=== PATIENT | female | born 1955 | race Caucasian/White ===

== ENCOUNTER → 2020-09-17 11:17 | Outpatient (CLI) | payer MEDICARE, SELFPAY ==
--- NOTE | 2020-09-17 11:22 | BI_ITS ---
MAMMOGRAPHY - BILATERAL SCREENING REASON FOR EXAM: Female, 65 years old. Routine annual screening examination. PERTINENT HISTORY: Non-contributory. TECHNIQUE: Digital bilateral breast higinio (3D mammographic acquisition) in the CC and MLO projections. 2-D mediolateral oblique (MLO) and craniocaudad (CC) views of both breasts were obtained. CAD: Full Field Digital Mammography with Computer Added Detection was performed. COMPARISON: Comparison is made with prior outside examination dated 04/28/2019. FINDINGS: Breast Composition: There are scattered areas of fibroglandular density. Scattered benign-appearing nodules are seen in both breasts more prominent on the right side. The largest nodule measures 4.4 mm and is in the upper central portion of the right breast. Correlation with ultrasound of the right breast is recommended. Stable small benign appearing bilateral axillary lymph nodes. No other significant abnormalities are identified. BI/SCRN MAMM (CAD)W/HIGINIO BILAT IMPRESSION: Small bilateral well-defined nodular densities as described. Correlation with ultrasound is recommended of the right breast. ASSESSMENT CATEGORY: BIRADS Category 0: Incomplete. Need additional imaging evaluation. A letter regarding these results will be sent to the patient by the facility within 30 days. Approximately 10% of breast cancers are not detected by mammography. A normal mammogram should not delay biopsy of a clinically suspicious abnormality. [id number] Electronically Signed: Meño Hester MD at 14:17 EDT , Service support ,
== END ==
PROVIDERS: PCP Family Medicine; Referring Provider Obstetrics & Gynecology; Visit Provider Obstetrics & Gynecology
DX: Z12.31 Encounter for screening mammogram for malignant neoplasm of breast (principal)
CPT/HCPCS: 77063; 77067

== ENCOUNTER → 2020-09-19 10:53 | Outpatient (CLI) | payer MEDICARE, SELFPAY ==
--- NOTE | 2020-09-19 10:54 | US_ITS ---
STUDY: ULTRASOUND BREAST - RIGHT REASON FOR EXAM: Female, 65 years old. Abnormal screening mammogram. TECHNIQUE: Axial and longitudinal images of the RIGHT breast were performed with a high resolution ultrasound transducer. # OF IMAGES: 45 COMPARISON: Comparison is made with prior mammogram dated 09/17/2020. FINDINGS: RIGHT Breast: There is a 4 mm x 4 mm x 3 mm cyst at the 12 o''clock position of the breast at 1 cm from the nipple. US/Breast Complete Unilateral IMPRESSION: 4 mm x 4 mm x 3 mm cyst at the 12 o''clock position of the breast at 1 cm from the nipple. ASSESSMENT CATEGORY: BIRADS Category 2: Benign. A letter regarding these results will be sent to the patient by the facility within 30 days. Electronically Signed: Meño Hester MD at 15:41 EDT , Service support ,
== END ==
PROVIDERS: PCP Family Medicine; Referring Provider Obstetrics & Gynecology; Visit Provider Obstetrics & Gynecology
DX: R92.8 Other abnormal and inconclusive findings on diagnostic imaging of breast (principal)
CPT/HCPCS: 76641

== ENCOUNTER → 2021-10-16 | Outpatient (CLI) | payer MEDICARE, SELFPAY ==
--- NOTE | 2021-10-16 13:50 | BI_ITS ---
MAMMOGRAPHY - BILATERAL SCREENING REASON FOR EXAM: Female, 66 years old. Routine annual screening examination. PERTINENT HISTORY: Non-contributory. TECHNIQUE: Digital bilateral breast higinio (3D mammographic acquisition) in the CC and MLO projections. 2-D mediolateral oblique (MLO) and craniocaudad (CC) views of both breasts were obtained. CAD: Full Field Digital Mammography with Computer Added Detection was performed. COMPARISON: Comparison is made with prior study dated 09/17/2020. FINDINGS: Breast Composition: There are scattered areas of fibroglandular density. There are no dominant masses or suspicious calcifications. No other significant abnormalities are identified. There has been no significant change since the prior study. BI/SCRN MAMM (CAD)W/HIGINIO BILAT IMPRESSION: Stable bilateral screening mammogram. Yearly follow-up mammogram recommended. (A) ASSESSMENT CATEGORY: BIRADS Category 1: Negative. A letter regarding these results will be sent to the patient by the facility within 30 days. Approximately 10% of breast cancers are not detected by mammography. A normal mammogram should not delay biopsy of a clinically suspicious abnormality. [id number] Electronically Signed: Meño Hester MD at 15:08 EDT ,
== END | disposition home or self-care (01) ==
LOC: OPBI 13:47
PROVIDERS: PCP Family Medicine; Visit Provider Family Medicine
DX: Z12.31 Encounter for screening mammogram for malignant neoplasm of breast (principal)
CPT/HCPCS: 77063; 77067

== ENCOUNTER → 2021-10-31 | Outpatient (CLI) | payer MEDICARE, SELFPAY ==
--- NOTE | 2021-10-31 08:00 | RAD_ITS ---
STUDY: AIR CONTRAST UPPER GI SERIES REASON FOR EXAM: Female, 66 years old. R13.10 - Dysphagia, unspecified FLUOROSCOPY TIME (if supplied): 33 seconds TECHNIQUE: SINGLE CONTRAST AND AIR CONTRAST FLUOROSCOPIC IMAGES. COMPARISON: None. FINDINGS: The cervical esophagus demonstrates normal motility without aspiration. There is no stricture or extrinsic mass effect. There is a small hiatal hernia with Schatzki''s ring in the distal esophagus. There is mild reflux. There is mild mucosal irregularity in the distal esophagus suggestive of chronic reflux. No mass or obstruction. The stomach distends well without mucosal fold thickening or mucosal ulceration. There is no intraluminal mass. The duodenal bulb is freely distensible without deformity or ulceration. The duodenal sweep is normal in position and caliber. RAD/Upper GI w/BA Swallow IMPRESSION: Small hiatal hernia with Schatzki''s ring in the distal esophagus. Mild reflux and mucosal changes suggestive of GERD. Electronically Signed: Omer Rojas, at 10:39 EDT ,
== END | disposition home or self-care (01) ==
LOC: RAD 07:48
PROVIDERS: PCP Family Medicine; Referring Provider Surgery; Visit Provider Surgery
DX: R13.10 Dysphagia, unspecified (principal)
CPT/HCPCS: 74246

== ENCOUNTER → 2021-11-26 | Outpatient (CLI) | payer MEDICARE, SELFPAY | END | disposition home or self-care (01) | LOC: LABSPEC 10:15 | PROVIDERS: PCP Family Medicine; Visit Provider Nurse Practitioner Women's Health | DX: R10.2 Pelvic and perineal pain (principal); R30.9 Painful micturition, unspecified | CPT/HCPCS: 87070; 87086; 87088; 87205 ==

== ENCOUNTER → 2021-11-27 | Outpatient (CLI) | payer MEDICARE, SELFPAY ==
--- NOTE | 2021-11-27 16:06 | US_ITS ---
STUDY: ULTRASOUND OF THE FEMALE PELVIS - COMPLETE REASON FOR EXAM: Female, 66 years old. PAIN LMP: TECHNIQUE: Transabdominal TECHNICAL QUALITY: Adequate. COMPARISON: None. FINDINGS: The uterus and ovaries have been removed. There is no apparent mass in the pelvis. There is no fluid in the cul-de-sac. The pre void volume of the bladder was 445 ml. US/Pelvic (Non ) IMPRESSION: Normal female pelvis. Electronically Signed: Levi Bedoya MD at 8:07 EDT ,
== END | disposition home or self-care (01) ==
LOC: US 16:04
PROVIDERS: PCP Family Medicine; Referring Provider Nurse Practitioner Women's Health; Visit Provider Nurse Practitioner Women's Health
DX: R10.2 Pelvic and perineal pain (principal); Z90.710 Acquired absence of both cervix and uterus; Z90.722 Acquired absence of ovaries, bilateral; Z90.79 Acquired absence of other genital organ(s)
CPT/HCPCS: 76856

== ENCOUNTER 2021-11-29 09:06 | Day surgery (SDC) | payer MEDICARE, SELFPAY ==
[2021-11-29] VITALS (7 sets, daily range): BP systolic 117–139; BP diastolic 75–96; PULSE 64–87; RESP 16; TEMP 36.4–36.6; O2SAT 95–100; BMI 34.0
[2021-11-29] MEDS: Lactated Ringers 1,000 ML 15 ML IV (09:49)
--- NOTE | 2021-11-29 10:15 | IMM_PTH ---
PATIENT: KIARRA BARBA LOC: EN U#:[id number] AGE/SX: 66/F ROOM: RE11/29/[address]: Dr. Farhad Topete MD : 1955 BED: DIS: 11/29/2021 SPEC #: [id number] RECD: 12/02/21 09:38 STATUS: GWEN RERajiv #: [id number] ERIKA: 11/29/21 10:[address]: Farhad Topete DEPT: IMMUNOHISTOCHEMISTRY RECD BY: Micaela Siegel ENTERED: 12/02/21 09:38 SP TYPE: IMMUNO OTHR DR: Dr. Stoney Glaser MD Tissues: B - Stomach, NOS Procedures: H Pylori (initial) PHYSICIAN & INSTITUTION [place] [id number] SPECIMEN INFORMATION: Tissue Source: B ? Gastric antrum Clinical Info: GERD, dysphagia Specimen Number: [id number] CPT code: 97688 METHODOLOGY: Deparaffinized sections of prefer/formalin-fixed tissue or PAP/DQ stained slides are incubated with monoclonal/polyclonal antibodies/oligonucleotide probes. Localization is made via biotin free immunoperoxidase method. Appropriate controls are performed and reacted as expected. Results on target cell population are indicated in the following table: RESULTS: ANTIBODY / CLONE RESULT Block B H Pylori (polyclonal) negative These tests were developed and their performance characteristics determined by [facility]. They may not have been cleared or approved by the U.S. Food and Drug Administration. The FDA has determined that such clearance or approval is not necessary. The above immunohistochemical/dualISH markers are ordered and reviewed by the Pathologist. INTERPRETATION: B. Gastric antrum, biopsy: Negative for Helicobacter pylori organisms. SJ:araceli 12/03/2021
--- NOTE | 2021-11-29 10:15 | EGD_PTH ---
PATIENT: KIARRA BARBA LOC: EN U#:[id number] AGE/SX: 66/F ROOM: RE11/29/[address]: Dr. Farhad Topete MD : 1955 BED: DIS: 11/29/2021 SPEC #: [id number] RECD: 11/29/21 13:28 STATUS: GWEN [place] #: [id number] ERIKA: 11/29/21 10:[address]: Farhad Topete DEPT: SURGICAL PATHOLOGY RECD BY: Cata Malloy ENTERED: 12/02/21 11:48 SP TYPE: EGD BIOPSY [facility] DR: Dr. Stoney Glaser MD Tissues: A - Duodenum, NOS B - Gastric mucous membrane C - Stomach, NOS D - Esophagus, NOS E - Cecum, NOS Procedures: Surgery Specimen Level IV HEADER OPERATION: Colonoscopy, EGD ([facility] [place]) with esophageal dilation PRE-OP DIAGNOSIS: GERD, dysphagia TISSUE SUBMITTED: A ? Duodenum biopsy, B ? Gastric antrum biopsy for H. pylori and pathology, C ? EG junction biopsy, D ? Mid esophagus biopsy, E ? Ileocecal valve biopsy MICROSCOPIC DIAGNOSIS A. Duodenum, biopsy: A fragment of duodenal mucosa, no pathologic diagnosis. B. Gastric antrum, biopsy: Mild gastritis. See microscopic description and comment. C. EG junction, biopsy: A fragment of squamous mucosa with mild chronic inflammation. D. Mid esophagus, biopsy: A fragment of squamous epithelium, no pathologic diagnosis. E. Ileocecal valve, biopsy: A fragment of small intestinal and colonic mucosa, no pathologic diagnosis. SJ:araceli 12/03/2021 COMMENT B. The results of immunohistochemistry for Helicobacter pylori will be reported separately ([id number]). MICROSCOPIC DESCRIPTION Slides are reviewed. B. The specimen shows fragments of gastric mucosa with chronic inflammatory cell infiltrates in the lamina propria consisting of lymphocytes and plasma cells, consistent with mild chronic gastritis. GROSS DESCRIPTION A - Received in fixative is one container labeled with the patient's name and designated duodenum biopsy. The specimen consists of one irregular fragment of light brower soft tissue that measures 0.3 x 0.3 x 0.1 cm. The specimen is totally submitted in one cassette. B - Received in fixative is one container labeled with the patient's name and designated biopsy gastric antrum. The specimen consists of one irregular fragment of light brower soft tissue that measures 0.4 x 0.3 x 0.1 cm. The specimen is totally submitted in one cassette. C - Received in fixative is one container labeled with the patient's name and designated biopsy EG junction. The specimen consists of one irregular fragment of light brower soft tissue that measures 0.3 x 0.3 x 0.1 cm. The specimen is totally submitted in one cassette. D - Received in fixative is one container labeled with the patient's name and designated biopsy mid esophagus. The specimen consists of one irregular fragment of light brower soft tissue that measures 0.5 x 0.2 x 0.1 cm. The specimen is totally submitted in one cassette. E - Received in fixative is one container labeled with the patient's name and designated biopsy ileocecal valve. The specimen consists of one irregular fragment of light brower soft tissue that measures 0.3 x 0.3 x 0.1 cm. The specimen is totally submitted in one cassette. / SJ:rg 12/02/2021 TC:3 CPT: 29868 x5
--- NOTE | 2021-11-29 10:26 | HP.PCM_ITS ---
History and Physical Date of Admission: 11/29/21 Visit Reasons:?EGD-Reflux C-Scope 2014 [place] Chief Complaint: gerd Judicial Administrative Assistant Required: No Is patient in pain?: No Allergies Sulfa (Sulfonamide Antibiotics) Allergy (Mild, Verified 10/28/21 13:04) unknown Medications atorvastatin 20 mg tablet 20 mg PO DAILY 01/11/20 [History Confirmed 10/28/21] levothyroxine 50 mcg capsule 50 mcg PO DAILY 01/11/20 [History Confirmed 10/28/21] lisinopril 10 mg tablet 20 mg PO DAILY 01/11/20 [History Confirmed 10/28/21] Is last menstrual period known: No Post menopausal: Yes Patient : No PFSH Medical History?(Updated 10/28/21 @ 13:19 by Jessa Galaviz) Abnormal glucose level Acquired hypothyroidism Allergic rhinitis Anxiety Essential hypertension Heartburn Hyperlipemia Malignant neoplasm of endometrium Osteoarthritis Post-menopausal bleeding Sciatica Surgical History? S/P dilation and curettage (~2015) S/P hysterectomy (~2015) S/P tonsillectomy Family History? Brother Heart diseaseFather Heart diseaseMother Lung cancerSister Hypertension Social History?(Updated 06/06/20 @ 14:[address] Jean Campbell, DO) Smoking Status:? Never smoker alcohol intake:? never substance use type:? does not use caffeine:? Yes what type of physical activity do you participate in:? walking seatbelt use:? always do you feel safe at home:? Yes additional social history:? -Retired HPI HPI HPI: KIARRA BARBA, is a 66 F who presents to the office today for surgical consultation regarding gastroesophageal reflux disease and need for surveillance colonoscopy.? The patient is referred by Dr. Stoney Glaser and a written copy my surgical consult recommendations will be returned to him.? The patient has a family history of colorectal cancer.? She is complaining of esophageal dysphagia.? The patient feels as if food is getting stuck occasionally.? She had been on long-term omeprazole therapy 20 mg daily.? As of September 19, 2021 white blood cell count was 4.8 with a hemoglobin 15 hematocrit 47.4 and a platelet count of 247,000.? I have records from [place] December 2014 colonoscopy showing internal hemorrhoids and diverticulosis. The patient states that she has had dysphagia problems for 6 to 7 years.? It could be a variety of foods.? Premoistening her esophagus with fluids does not help.? She does have some acid reflux.? She has been on omeprazole in the past but actually currently is not taking it because she read the package and stated that it had a term date and then she needed to stop it.? She complains of heartburn with eating fruit per tickly bananas. No bright red blood per rectum or melena.? No weight change. 2016 she had laparoscopic hysterectomy for endometrial cancer.? Apparently this was in [place] and did not require postoperative chemoradiation. Her last colonoscopy she states was 7 years ago. Family history notable for mother who had rectal cancer. ROS General General: No weight change, appetite, fatigue, colon cancer, breast cancer or weakness HEENT HEENT: No difficulty swallowing, eye injury, eye surgery, swollen glands or hoarseness Endo Endocrine: No thyroid disease, diabetes mellitus, thyroid cancer, Hair loss, heat intolerance or cold intolerance Skin Skin: No rash or changing moles Breast Breast: No left breast lump, right breast lump, nipple discharge, breast pain, abnormal mammogram, abnormal US or breast enlargement Musc Musculoskeletal: Yes arthritis; No back problems, rheumatoid arthritis, gout or joint pain Cardio Cardiovascular: Yes high blood pressure; No murmur, pacemaker, heart disease, atrial fibrillation, heart attack, heart stent, palpitations, shortness of breat with exertion or chest pain Psych Psychiatric: No depression, anxiety or hearing voices Resp Respiratory: No shortness of breath, No sleep apnea, No cough, No COPD, No asthma, No emphysema and No wheezing Gastro Gastrointestinal: No abdominal pain, No nausea or vomiting, No diarrhea, No constipation, No blood in stool, Yes acid reflux, No hemorrhoids, No ulcers, No gallbladder problem and No black,tarry stools Giuseppe Hematologic: No blood thinners, No blood disorders, No bleeding, No anemia and Yes blood clots Neuro Neurologic: No system reviewed and no additional complaints, except as documented, No as per HPI, No abnormal gait, No abnormal hearing, No abnormal movements, No abnormal speech, No behavioral changes, No burning sensations, No confusion, No convulsions, No disequilibrium, No dizziness, No localized weakness, No frequent falls, No headache(s), No lack of coordination, No loss of vision, No memory loss, No numbness, No other visual disturbances, No radicular pain, No restless legs, No sensory deficit, No syncope, No tingling, No tremor(s), No weakness and No other Exam Const General: cooperative, comfortable and no acute distress Nutritional Appearance: obese HENMT Head: normal to inspection Eyes General: appearance normal, both eyes and all related structures Neck Neck: normal visual inspection Resp Effort & Inspection: normal respiratory effort Cardio Rate: regular rate Rhythm: regular rhythm GI Inspection: normal to inspection Other: Well-healed laparoscopic incisions, generally distended abdomen, somewhat tonically bloated, cannot palpate any internal organs, unremarkable bowel sounds Musc Cervical Spine: normal cervical lordosis Skin General: no rashes or lesions noted Neuro General: patient alert, patient awake and patient oriented x3 Extrem General: no calf tenderness Psych Appearance: grossly normal Assessment and Plan Assessment and Plan (1) GERD (gastroesophageal reflux disease): ?Status:?Acute (2) Dysphagia: ?Status:?Acute ? ? ? Orders: Orders Upper GI w/BA Swallow Today R13.10 - Dysphagia, unspecified ? Plan 66-year-old female with progressive esophageal dysphagia.? Regurgitation of undigested food.? I do want to obtain a barium swallow to assess for potential for Zenker's diverticulum or significant stricturing.? I have proposed with the patient a esophagogastroduodenoscopy with possible biopsy or esophageal dilatation if indicated.? She has had an opportunity to ask and have questions answered. The patient's had a history of personal endometrial cancer.? She is 7 years out from her previous colonoscopy.? She also has a family history of colon cancer in her mother i.e. rectal cancer.? I propose for her adding a colonoscopy with possible biopsy or polypectomy.? She has had an opportunity ask and have questions answered.? We will perform these procedures under monitored anesthesia care. I appreciate the opportunity of assisting with the surgical care. Copy: Dr. Stoney Topete M.D., F.A.C.S. Barium swallow obtained showed a hiatal hernia and a Schatzki ring and reflux and distal esophageal changes suggesting GERD. We will proceed as noted. Farhad Topete M.D., F.A.C.S.
--- NOTE | 2021-11-29 12:10 | OP.EGD_ITS ---
Patient Name: Caitie Guadarrama Procedure Date: 11/29/2021 11:16 AM Date of : 1955 Age: 66 Procedure: Upper GI endoscopy Indications: Dysphagia Providers: Farhad Topete MD Referring MD: Stoney Glaser Medicines: See the Anesthesia note for documentation of the administered medications Complications: No immediate complications. Procedure: Pre-Anesthesia Assessment: - Prior to the procedure, a History and Physical was performed, and patient medications and allergies were reviewed. The patient's tolerance of previous anesthesia was also reviewed. The risks and benefits of the procedure and the sedation options and risks were discussed with the patient. All questions were answered, and informed consent was obtained. Prior Anticoagulants: The patient has taken no previous anticoagulant or antiplatelet agents. ASA Grade Assessment: II - A patient with mild systemic disease. After reviewing the risks and benefits, the patient was deemed in satisfactory condition to undergo the procedure. After obtaining informed consent, the endoscope was passed under direct vision. Throughout the procedure, the patient's blood pressure, pulse, and oxygen saturations were monitored continuously. The gastroscope was introduced through the mouth, and advanced to the second part of duodenum. The upper GI endoscopy was accomplished without difficulty. The patient tolerated the procedure well. Scope In: 11:25:00 AM Scope Out: 11:41:21 AM Total Procedure Duration Time 0 hours 16 minutes 21 seconds Findings: Esophagitis with no bleeding was found. Biopsies were taken with a cold forceps for histology. LA Grade C (one or more mucosal breaks continuous between tops of 2 or more mucosal folds, less than 75% circumference) esophagitis with no bleeding was found 39 cm from the incisors. Biopsies were taken with a cold forceps for histology. A moderate Schatzki ring was found at the gastroesophageal junction. A TTS dilator was passed through the scope. Dilation with an 18-19-20 mm balloon dilator was performed to 20 mm. The dilation site was examined and showed moderate improvement in luminal narrowing. Diffuse moderate inflammation characterized by congestion (edema) was found in the gastric antrum. Biopsies were taken with a cold forceps for histology. Diffuse mildly erythematous mucosa without active bleeding and with no stigmata of bleeding was found in the duodenal bulb. Biopsies were taken with a cold forceps for histology. A medium-sized hiatal hernia was present. Impression: - Reflux esophagitis. Biopsied. - LA Grade C reflux esophagitis. Biopsied. - Moderate Schatzki ring. Dilated. - Chronic gastritis. Biopsied. - Erythematous duodenopathy. Biopsied. - Medium-sized hiatal hernia. Recommendation: - Discharge patient to home. - Resume previous diet. - Continue present medications. - Return to my office in 6 days. Findings are very much consistent with severe reflux esophagitis with acute EG junction inflammation and Schatzki ring. Moderately large hiatal hernia. Patient will be instructed to mandatorily take her proton pump inhibitor therapy routinely. Dosages may need to be increased. Consideration for possible surgical repair to be investigated. Procedure Code(s): --- Professional --- 50826, Esophagogastroduodenoscopy, flexible, transoral; with transendoscopic balloon dilation of esophagus (less than 30 mm diameter) 70180, 59, Esophagogastroduodenoscopy, flexible, transoral; with biopsy, single or multiple Diagnosis Code(s): --- Professional --- K21.0, Gastro-esophageal reflux disease with esophagitis K22.2, Esophageal obstruction K29.50, Unspecified chronic gastritis without bleeding K31.89, Other diseases of stomach and duodenum K44.9, Diaphragmatic hernia without obstruction or gangrene R13.10, Dysphagia, unspecified CPT copyright 2017 [employer]. All rights reserved. The codes documented in this report are preliminary and upon dish technician review may be revised to meet current compliance requirements. Farhad Topete MD 11/29/2021 12:10:15 PM This report has been signed electronically. Number of Addenda: 0 Note Initiated On: 11/29/2021 11:16 AM
--- NOTE | 2021-11-29 12:10 | OP.CCLET_ITS ---
11/29/2021 Stoney Glaser Re : Upper GI endoscopy procedure for Caitie Guadarrama Dear Jailyn This procedure was performed on Monday, November 29, 2021. My impressions and recommendations are as follows: Impressions : - Reflux esophagitis. Biopsied. - LA Grade C reflux esophagitis. Biopsied. - Moderate Schatzki ring. Dilated. - Chronic gastritis. Biopsied. - Erythematous duodenopathy. Biopsied. - Medium-sized hiatal hernia. Recommendations : - Discharge patient to home. - Resume previous diet. - Continue present medications. - Return to my office in 6 days. Findings are very much consistent with severe reflux esophagitis with acute EG junction inflammation and Schatzki ring. Moderately large hiatal hernia. Patient will be instructed to mandatorily take her proton pump inhibitor therapy routinely. Dosages may need to be increased. Consideration for possible surgical repair to be investigated. My findings are described in the full procedure note, which is enclosed. If I can be of further assistance, please feel free to contact me at Doctor phone number(s): Work: . Sincerely, Farhad Topete MD 11/29/2021 12:10:15 PM This report has been signed electronically.
--- NOTE | 2021-11-29 12:18 | OP.CCLET_ITS ---
11/29/2021 Stoney Glaser Re : Colonoscopy procedure for Caitie Guadarrama Dear Jailyn This procedure was performed on Monday, November 29, 2021. My impressions and recommendations are as follows: Impressions : - Preparation of the colon was fair. - Non-thrombosed external hemorrhoids, non-thrombosed internal hemorrhoids and internal hemorrhoids that prolapse with straining, but spontaneously regress to the resting position (Grade II) found on digital rectal exam. - Diverticulosis in the entire examined colon. - Erythematous mucosa at the ileocecal valve. Biopsied. - The examination was otherwise normal. Recommendations : - Discharge patient to home. - Resume previous diet. - Continue present medications. - Repeat colonoscopy in 5 years for surveillance. - Return to endoscopist. My findings are described in the full procedure note, which is enclosed. If I can be of further assistance, please feel free to contact me at Doctor phone number(s): Work: . Sincerely, Farhad Topete MD 11/29/2021 12:17:26 PM This report has been signed electronically.
--- NOTE | 2021-11-29 12:18 | OP.COLON_ITS ---
Patient Name: Caitie Guadarrama Procedure Date: 11/29/2021 11:45 AM Date of : 1955 Age: 66 Procedure: Colonoscopy Indications: Family history of anal canal cancer in a first-degree relative Providers: Farhad Topete MD Referring MD: Stoney Glaser Medicines: See the Anesthesia note for documentation of the administered medications Patient Profile: Last Colonoscopy: several years ago. Complications: No immediate complications. Procedure: Pre-Anesthesia Assessment: - Prior to the procedure, a History and Physical was performed, and patient medications and allergies were reviewed. The patient's tolerance of previous anesthesia was also reviewed. The risks and benefits of the procedure and the sedation options and risks were discussed with the patient. All questions were answered, and informed consent was obtained. Prior Anticoagulants: The patient has taken no previous anticoagulant or antiplatelet agents. ASA Grade Assessment: II - A patient with mild systemic disease. After reviewing the risks and benefits, the patient was deemed in satisfactory condition to undergo the procedure. After I obtained informed consent, the scope was passed under direct vision. Throughout the procedure, the patient's blood pressure, pulse, and oxygen saturations were monitored continuously. The colonoscope was introduced through the anus and advanced to the cecum, identified by appendiceal orifice and ileocecal valve. The colonoscopy was performed without difficulty. The patient tolerated the procedure well. The quality of the bowel preparation was fair. The ileocecal valve and the appendiceal orifice were photographed. Scope In: 11:47:12 AM Scope Withdrawal Time 0 hours 7 minutes 17 seconds Scope Out: 12:01:37 PM Total Procedure Duration Time 0 hours 14 minutes 25 seconds Findings: The digital rectal exam findings include non-thrombosed external hemorrhoids, non-thrombosed internal hemorrhoids and internal hemorrhoids that prolapse with straining, but spontaneously regress to the resting position (Grade II). Multiple diverticula were found in the entire colon. A localized area of mildly erythematous mucosa was found at the ileocecal valve. Biopsies were taken with a cold forceps for histology. The exam was otherwise without abnormality. Impression: - Preparation of the colon was fair. - Non-thrombosed external hemorrhoids, non-thrombosed internal hemorrhoids and internal hemorrhoids that prolapse with straining, but spontaneously regress to the resting position (Grade II) found on digital rectal exam. - Diverticulosis in the entire examined colon. - Erythematous mucosa at the ileocecal valve. Biopsied. - The examination was otherwise normal. Recommendation: - Discharge patient to home. - Resume previous diet. - Continue present medications. - Repeat colonoscopy in 5 years for surveillance. - Return to endoscopist. Procedure Code(s): --- Professional --- 80737, Colonoscopy, flexible; with biopsy, single or multiple Diagnosis Code(s): --- Professional --- K64.1, Second degree hemorrhoids K64.4, Residual hemorrhoidal skin tags K63.89, Other specified diseases of intestine Z80.0, Family history of malignant neoplasm of digestive organs K57.30, Diverticulosis of large intestine without perforation or abscess without bleeding CPT copyright 2017 [employer]. All rights reserved. The codes documented in this report are preliminary and upon credit collection specialist review may be revised to meet current compliance requirements. Farhad Topete MD 11/29/2021 12:17:26 PM This report has been signed electronically. Number of Addenda: 0 Note Initiated On: 11/29/2021 11:45 AM
== END 2021-11-29 13:10 | disposition home or self-care (01) ==
LOC: EN 09:08 → AC 09:09
PROVIDERS: PCP Family Medicine; Referring Provider Family Medicine; Visit Provider Surgery
PROC: 0DJD8ZZ Inspection of Lower Intestinal Tract, Via Natural or Artificial Opening Endoscopic (ICD-10-PCS; CPT 45378; principal; 2021-11-29 10:10)
DX: K29.70 Gastritis, unspecified, without bleeding (principal); E03.9 Hypothyroidism, unspecified; F41.9 Anxiety disorder, unspecified; E78.5 Hyperlipidemia, unspecified; I10 Essential (primary) hypertension; M19.90 Unspecified osteoarthritis, unspecified site; Z78.0 Asymptomatic menopausal state; Z85.42 Personal history of malignant neoplasm of other parts of uterus; Z79.899 Other long term (current) drug therapy; K21.00 Gastro-esophageal reflux disease with esophagitis, without bleeding; Z80.0 Family history of malignant neoplasm of digestive organs; K22.2 Esophageal obstruction; K44.9 Diaphragmatic hernia without obstruction or gangrene; K64.1 Second degree hemorrhoids; K64.4 Residual hemorrhoidal skin tags; K57.30 Diverticulosis of large intestine without perforation or abscess without bleeding
CPT/HCPCS: 45380; 43239; 43249; 88305; 88342; J7120; J2405

== ENCOUNTER → 2022-01-28 | Outpatient (CLI) | payer MEDICARE, SELFPAY ==
--- NOTE | 2022-01-28 13:21 | MRI_ITS ---
STUDY: MRI RIGHT KNEE REASON FOR EXAM: Medial right knee pain for 4 years, no specific injury. TECHNIQUE: Standardized fat and water weighted pulse sequences were obtained in all 3 orthogonal planes. COMPARISON: Radiographs 01/17/2022. FINDINGS: There is tear/degeneration of the posterior horn/body of the medial meniscus (proton-density sagittal images 31-36; proton-density coronal images 15-20). There is peripheral subluxation of the medial meniscus. There is arthrosis of the medial femorotibial compartment with chondral thinning (T2 sagittal image 18). There is very mild subchondral bone edema of the medial femoral condyle and tibial plateau (T2 coronal images 13-17), a stress phenomenon. Normal medial collateral ligamentous complex (MCL). Normal distal semimembranosus, gracilis and semitendinosus tendons. Normal lateral meniscus. Normal hyaline cartilage of the lateral femorotibial compartment. Normal lateral femoral condyle and tibial plateau. Normal proximal tibiofibular articulation. Normal lateral collateral (fibular) ligament. Normal popliteus tendon. Normal biceps femoris tendon. Normal anterior cruciate ligament (ACL). Normal posterior cruciate ligament (PCL). Normal congruent patellofemoral articulation. There is intermediate grade chondromalacia of the medial patellar facet (T2 sagittal image 15) with slight subchondral bone edema. Normal medial and lateral patellar retinaculum. Normal visualized quadriceps tendon. Normal patellar tendon. Normal Hoffa''s fat pad. There is a minimal volume of fluid in the knee joint. There is mild edema in the anterior subcutis adipose space. The otherwise visualized osseous structures are unremarkable. MRI/Lower Ext Joint Only (Routine) IMPRESSION: Medial meniscal tear/degeneration. Arthrosis of the medial femorotibial compartment. Chondromalacia patellae. Very mild subchondral bone edema of the medial femoral condyle and medial tibial plateau, a stress phenomenon. Electronically Signed: Shawn Barraza MD at 14:32 EDT ,
== END | disposition home or self-care (01) ==
LOC: MRI 13:20
PROVIDERS: PCP Family Medicine; Referring Provider Orthopaedic Surgery; Visit Provider Orthopaedic Surgery
DX: M17.11 Unilateral primary osteoarthritis, right knee (principal); M25.561 Pain in right knee
CPT/HCPCS: 73721

== ENCOUNTER → 2022-03-06 | Outpatient (CLI) | payer MEDICARE, SELFPAY | END | disposition home or self-care (01) | PROVIDERS: PCP Family Medicine; Visit Provider Nurse Practitioner Women's Health | DX: R10.2 Pelvic and perineal pain (principal) | CPT/HCPCS: 87070; 87205 ==

== ENCOUNTER 2022-06-10 08:53 | Day surgery (SDC) | payer MEDICARE, SELFPAY ==
[2022-06-10 09:11] VITALS: BP 152/93; PULSE 82; RESP 16; TEMP 36.1; O2SAT 100; BMI 35.0
[2022-06-10] MEDS: Lactated Ringers 1,000 ML 15 ML IV (09:29)
--- NOTE | 2022-06-10 10:07 | PCM.HP.BLA ---
History and Physical Date of Admission: 06/10/22 [facility] [address] [place] [address] OFFICE VISIT Date of Service:? 05/14/22 MR#: [id number] Acct: [id number] Name:KIARRA PHILIPPE Rep #: [id number] : 1955 ? ? Provider: Dr. Jean Campbell, DO Age/Sex:? 67/F ? ? Location: [facility] Status: Signed Intake Vital Signs ? 04/24/2211:35 Height 5 ft 4 in Intake Visit Reasons:?RIGHT KNEE Chief Complaint: right knee Accompanied by: Self Is patient in pain?: Yes Pain scale (1-10): 8 Allergies Sulfa (Sulfonamide Antibiotics) Allergy (Mild, Verified 03/06/22 14:21) unknown Medications atorvastatin 20 mg tablet 20 mg PO DAILY 01/11/20 [History Confirmed 05/14/22] levothyroxine 50 mcg capsule 50 mcg PO DAILY 01/11/20 [History Confirmed 05/14/22] lisinopril 10 mg tablet 20 mg PO DAILY 01/11/20 [History Confirmed 05/14/22] omeprazole 40 mg capsule,delayed release 40 mg PO DAILY #90 caps 11/29/21 [Rx Confirmed 05/14/22] PFSH Medical History? Abnormal glucose level Acquired hypothyroidism Alcohol use Allergic rhinitis Anxiety Arthritis Cancer DVT (deep venous thrombosis) Essential hypertension Gastric reflux Heartburn High cholesterol History of hiatal hernia Hyperlipemia Hypertension Injury of head and neck Malignant neoplasm of endometrium Non-smoker Osteoarthritis Post-menopausal Post-menopausal bleeding Sciatica Thyroid disease Wears glasses Surgical History? Hx of colonoscopy S/P dilation and curettage (~2015) S/P hysterectomy (~2015) S/P tonsillectomy Family History? Brother Heart diseaseFather Heart diseaseMother Lung cancerSister Hypertension Social History? Smoking Status:? Never smoker alcohol intake:? never substance use type:? does not use caffeine:? Yes what type of physical activity do you participate in:? walking seatbelt use:? always do you feel safe at home:? Yes additional social history:? -Retired HPI RIGHT KNEE Details: Parts of this documentation were recorded by a scribe, this documentation accurately reflects the service provided and the decisions made by me, Dr. Jean Campbell, DO 05/14/22 2235. KIARRA BARBA is a 67 year old F here today for? right knee pain that she has been having continued right knee pain for the last 2-3 years. Mostly medial sided knee pain but She states that the location of the pain varies. She states that some days she has more pain than others. She has tried and failed therapy, bracing, injections without relief. She wants to know what the surgical option would be at this time. We then requested Synvisc one through insurance but the cost was to great for her to pay out of pocket. she did have an MRI from 01/2022 and xrays from 01/2022. Ortho Exam General General: Yes no acute distress Neurologic: Yes alert and Yes oriented x3 Psychologic: Yes reasonable and appropriate Right Knee Skin/Wound: Yes CDI, No erythema, No ecchymosis and No swelling Homans Sign: No Knee ROM: Yes ROM-Extension -20 to 0 and No ROM-Flexion 0-140 (108) Examination: Yes Med jt line tenderness, No Lat jt line tenderness and Yes Ana M's Test Stability: NML: Anterior Drawer, NML: Posterior Drawer, NML: Valgus 30 and NML: Varus 30 Patella Translation: 1 KNEE: sensation intact to light touch Left Knee Patella Translation: 1 Supplemental Info 02/05/2022 MRI right knee: Medial meniscal tear/degeneration. Arthrosis of the medial femorotibial compartment.? Chondromalacia patellae.? Very mild subchondral bone edema of the medial femoral condyle and medial? tibial plateau, a stress phenomenon.? 01/17/2022 x-ray right knee: Relatively unchanged from 2020 study mild medial joint space narrowing and trochlear spurring Coding Level of Care Code Off vis,est,level 3 Diagnoses Medial meniscus tear? S83.249A Primary osteoarthritis of right knee? M17.11 Assessment and Plan Assessment and Plan (1) Medial meniscus tear: ?Status:?Acute (2) Primary osteoarthritis of right knee: ?Status:?Acute Plan Patient educated that she does have a medial meniscus tear and mild arthritis of the knee. Educated that on xray and MRI she doesn't seem to have enough cartilage loss to warrant a knee replacement at this time. Educated that since she has tried and failed conservative care her next step would be to have a right knee arthroscopy for partial medial meniscectomy. Reviewed the pre-operative plans with the patient. Risks and benefits of the procedure were fully explained, including but not limited to infection, neurovascular injury, continued pain, arthritis, stiffness, need for further surgery, re-injury, DVT, PE, general risks of anesthesia, and loss of limb or life. The patient understands all the risks and does wish to proceed with written consent. Follow up 2 weeks post op or sooner if pain, swelling, numbness or associated symptoms, or concerns develop.? All questions answered. Patient in agreement of plan. 05/14/22 1416 <Electronically signed by Jean Campbell DO> Date Jean Nguyenignnoah Signature: Date (if applicable) ? CC:? Dr. Stoney Glaser MD ~ I have examined the patient and the H&P has been reviewed. There are no clinical changes since date of exam.
[2022-06-10] MEDS: Cefazolin 2 GM in 0.9% Normal Saline 100 ML IV (10:31)
[2022-06-10] MEDS: Epinephrine (1 mg/ml) 1 MG/ML VIAL (10:51)
[2022-06-10] MEDS: Bupiv/Epi 0.5% Mpf 30 ML Vial (10:51)
[2022-06-10] MEDS: MethylPREDNISolone Acetate 40 MG/ML Vial IM (11:05)
[2022-06-10] MEDS: Bupivacaine 0.5% PF 10 ML VIAL (11:05)
--- NOTE | 2022-06-10 11:14 | OP.PCM_ITS ---
Operative Report Date of Procedure: 06/10/22 Preop diagnosis: Right knee medial meniscus tear DJD Postoperative diagnosis: Right knee complex tear posterior horn and body medial meniscus anterior horn lateral meniscus grade 4 cartilage wear medial tibial plateau grade 3 diffuse medial compartment grade 3 fissure patella grade 2-3 trochlea Procedure: Right knee arthroscopic partial medial meniscectomy partial lateral meniscectomy Anesthesia: General Estimated blood loss: 5 mL Tourniquet time: 16 minutes 300 mmHg Complications: none Indication for procedure: 67-year-old female who has had ongoing knee pain and mechanical symptoms the patient did wish to proceed with an elective arthroscopic surgery to attempt to alleviate the symptoms. Risk benefits and alternatives of the procedure were reviewed including risk of bleeding infection nerve artery tissue damage need for further surgery continued pain and expected postoperative course. Procedure: The patient was met in the preoperative holding area. The operative extremity was identified by both patient and physician and family and marked. Patient was brought back to the operating room on a wheeled cart and transferred to the operating table in the supine position. Anesthesia was started. A well- padded tourniquet was placed on the operative extremity. A lower extremity leg grissom was secured to the operative extremity. The contralateral extremity was well-padded and the end of the bed was flexed to 90 degrees. The patient was prepped and draped in the usual sterile fashion. A timeout was called to ensure the proper patient, procedure, and extremity were being contemplated. 0.5% Marcaine with epinephrine was injected into the planned incisional areas under the skin only. An Esmarch was used to exsanguinate the extremity and the tourniquet was inflated. An 11 blade scalpel was used to make a stab incision in the anterior lateral portal. The arthroscope was inserted into the intercondylar notch and inflow and outflow tubes were attached. Arthroscopic visualization began. The medial compartment was entered. An 18-gauge spinal needle was used to establish the placement for anterior medial portal. An 11 blade scalpel was used to make a stab incision. Blunt probe was inserted followed by a meniscal probe. There is no to be a complex tear of the body of the medial meniscus which was flipped with use of a shaver partial medial meniscectomy was performed there was found to be grade 4 cartilage wear in the periphery of the medial tibial plateau by 1.5 cm the ACL was found to be intact. The lateral compartment was entered and there was softening of the cartilage and tearing of the anterior horn with use of a shaver partial anterior horn lateral meniscectomy was performed the arthroscope was switched to the medial portal to complete the procedure. The medial and lateral gutters were inspected and were free of loose bodies. The patellofemoral joint was inspected grade 3 cartilage fissure of the patella and grade 2-3 softening of the trochlea mostly on the medial side. There was good patellar tracking. The knee was thoroughly irrigated and drained. An intra-articular injection with 5 cc 0.5% Marcaine plain and 40 mg of Depo-Medrol was injected intra-articularly. The arthroscope was removed the portals were closed with 3-0 nylon arthroscopic stitches. Followed by Xeroform 4 x 4's ABDs web roll and an Yfn wrap. The tourniquet was let down and the drapes were removed. All counts were correct. The patient was brought back to the PACU in stable condition.
--- NOTE | 2022-06-10 11:17 | DCINST_ITS ---
Discharge Instructions Dressing / Incision Call your doctor if you observe: Shortness of breath and Chest pain Additional Dressing/Incision Instructions:: Ice and elevate next 72 hours .keep dressing on clean and dry for 48 hours then may remove begin showering daily but do not submerge in tub or pool. After shower may apply Band-Aids . Encourage knee range of motion weightbearing as tolerated, use crutches until confident in knee then may discontinue. No strenuous activity. When not ambulating keep iced and elevated next 72 hours. Do not mix pain medication with recreational drugs or alcohol only take as prescribed can be addictive and abusive, call with any questions or concerns. Follow Up Care Please Follow Up With: Jean Campbell DO When: 2 weeks Test Results: Test results from this visit will be discussed in further detail at your follow- up appointment, if applicable. Discharge Plan Admission Primary Reason for Your Visit: Right knee arthroscopy Attending Provider: Jean Campbell Primary Care Provider: Stoney Glaser Discharge Orders/Prescriptions Prescriptions: New oxycodone 5 mg tablet 5 - 10 mg PO Q4H PRN (Reason: pain) 5 Days Qty: 20 0RF No Action levothyroxine 50 mcg capsule 50 mcg capsule 50 mcg PO DAILY atorvastatin 20 mg tablet 20 mg PO DAILY lisinopril 10 mg tablet 20 mg PO DAILY omeprazole 40 mg capsule,delayed release(DR/EC) See Rx Instructions .ROUTE .COMPLEX Qty: 90 2RF Dose Instruction: TAKE 1 CAPSULE BY MOUTH ONCE DAILY Rx Instructions: TAKE 1 CAPSULE BY MOUTH ONCE DAILY Referrals / Follow Up: Stoney Glaser MD [Primary Care Provider] - Disposition Disposition (needs filled in before D/C Order can be placed): Home, Self Care
[2022-06-10 11:22] VITALS: BP 152/93; BP 160/108; PULSE 96; RESP 16; TEMP 36.1; O2SAT 99
[2022-06-10 11:30] VITALS: BP 152/93; BP 157/105; PULSE 83; RESP 16; O2SAT 97
[2022-06-10 11:45] VITALS: BP 134/93; BP 152/93; PULSE 82; RESP 16; O2SAT 98
[2022-06-10 12:00] VITALS: BP 132/91; BP 152/93; PULSE 83; RESP 16; TEMP 36.1; O2SAT 98
[2022-06-10 12:30] VITALS: BP 152/93
== END 2022-06-10 12:53 | disposition home or self-care (01) ==
LOC: SDC 08:55 → AC 08:55
PROVIDERS: PCP Family Medicine; Referring Provider Orthopaedic Surgery; Visit Provider Orthopaedic Surgery
PROC: (CPT 29870; principal; 2022-06-10 10:10)
DX: S83.249A Other tear of medial meniscus, current injury, unspecified knee, initial encounter (principal); M17.11 Unilateral primary osteoarthritis, right knee; I10 Essential (primary) hypertension; E78.5 Hyperlipidemia, unspecified; K21.9 Gastro-esophageal reflux disease without esophagitis; Z86.718 Personal history of other venous thrombosis and embolism; E03.9 Hypothyroidism, unspecified; Z80.0 Family history of malignant neoplasm of digestive organs; Z90.79 Acquired absence of other genital organ(s)
CPT/HCPCS: 29880; 01400; J7120; J2405

== ENCOUNTER → 2022-11-20 | Outpatient (CLI) | payer MEDICARE, SELFPAY ==
--- NOTE | 2022-11-20 11:58 | BI_ITS ---
MAMMOGRAPHY - BILATERAL SCREENING REASON FOR EXAM: Female, 67 years old. Routine annual screening examination. PERTINENT HISTORY: Non-contributory. TECHNIQUE: Digital bilateral breast higinio (3D mammographic acquisition) in the CC and MLO projections. 2-D mediolateral oblique (MLO) and craniocaudad (CC) views of both breasts were obtained. CAD: Full Field Digital Mammography with Computer Added Detection was performed. COMPARISON: Comparison is made with prior study dated October 16, 2021 and September 17, 2020. FINDINGS: Breast Composition: There are scattered areas of fibroglandular density. There are no dominant masses or suspicious calcifications. Stable small fat-containing bilateral axillary lymph nodes. No other significant abnormalities are identified. There has been no significant change since the prior study. BI/SCRN MAMM (CAD)W/HIGINIO BILAT IMPRESSION: Stable bilateral screening mammogram. Yearly follow-up mammogram recommended. (A) ASSESSMENT CATEGORY: BIRADS Category 2: Benign. A letter regarding these results will be sent to the patient by the facility within 30 days. Approximately 10% of breast cancers are not detected by mammography. A normal mammogram should not delay biopsy of a clinically suspicious abnormality. [id number] Electronically Signed: Meño Hester MD at 13:20 EDT ,
== END | disposition home or self-care (01) ==
LOC: OPBI 11:56
PROVIDERS: PCP Family Medicine; Referring Provider Family Medicine; Visit Provider Family Medicine
DX: Z12.31 Encounter for screening mammogram for malignant neoplasm of breast (principal)
CPT/HCPCS: 77063; 77067

== ENCOUNTER → 2023-11-23 | Outpatient (CLI) | payer MEDICARE, SELFPAY ==
--- NOTE | 2023-11-23 11:00 | BI_ITS ---
MAMMOGRAPHY - BILATERAL SCREENING REASON FOR EXAM: Female, 68 years old. Routine annual screening examination. PERTINENT HISTORY: Non-contributory. TECHNIQUE: Digital bilateral breast higinio (3D mammographic acquisition) in the CC and MLO projections. 2-D mediolateral oblique (MLO) and craniocaudad (CC) views of both breasts were obtained. CAD: Full Field Digital Mammography with Computer Added Detection was performed. COMPARISON: Comparison is made with prior study of November 20, 2022 and October 16, 2021. FINDINGS: Breast Composition: There are scattered areas of fibroglandular density. There are no dominant masses or suspicious calcifications. Stable bilateral fat containing axillary lymph nodes. No other significant abnormalities are identified. There has been no significant change since the prior study. BI/SCRN MAMM (CAD)W/HIGINIO BILAT IMPRESSION: Stable bilateral screening mammogram. Yearly follow-up mammogram recommended. (A) ASSESSMENT CATEGORY: BIRADS Category 2: Benign. A letter regarding these results will be sent to the patient by the facility within 30 days. Approximately 10% of breast cancers are not detected by mammography. A normal mammogram should not delay biopsy of a clinically suspicious abnormality. [id number] Electronically Signed: Meño Hester MD at 12:48 EDT ,
== END | disposition home or self-care (01) ==
PROVIDERS: PCP Nurse Practitioner Family; Referring Provider Nurse Practitioner Family; Visit Provider Nurse Practitioner Family
DX: Z12.31 Encounter for screening mammogram for malignant neoplasm of breast (principal)
CPT/HCPCS: 77063; 77067

== ENCOUNTER → 2024-12-06 | Outpatient (CLI) | payer MEDICARE, SELFPAY ==
--- NOTE | 2024-12-06 13:27 | BI_ITS ---
EXAM: SCRN MAMM (CAD)W/HIGINIO BILAT DATE: 12/06/2024 CLINICAL HISTORY: F, Age 69 y/o , SCREENING No family history. TECHNIQUE: SCRN MAMM (CAD)W/HIGINIO BILAT COMPARISON: Prior exam(s) dated November 23, 2023.. FINDINGS: TISSUE DENSITY: There are scattered areas of fibroglandular density. Bilateral Breast Mammographic Findings: No significant masses, calcifications or other abnormalities are identified. No suspicious masses, areas of developing architectural distortion, or suspicious calcifications. There has been no significant interval change. BI/SCRN MAMM (CAD)W/HIGINIO BILAT IMPRESSION: Stable examination. OVERALL FINAL ASSESSMENT BI-RADS 1: NEGATIVE. RECOMMENDATION: Routine annual follow-up in 1 Year A letter with findings and recommendations will be mailed to the patient. Reading Location: [id number]
== END | disposition home or self-care (01) ==
LOC: OPBI 13:26
PROVIDERS: PCP Nurse Practitioner Family; Referring Provider Nurse Practitioner Family; Visit Provider Nurse Practitioner Family
DX: Z12.31 Encounter for screening mammogram for malignant neoplasm of breast (principal)
CPT/HCPCS: 77063; 77067